=== PATIENT | female | born 1985 | race Hispanic/Latino ===

== ENCOUNTER 2017-05-25 13:47 | Emergency (ER) | payer BC, OTHER ==
--- NOTE | 2017-05-25 14:32 | RAD ---
3 VIEWS RIGHT HAND: Date: 05/25/17 COMPARISON: None. HISTORY: Slipped on a glove at work and fell with right hand pain. FINDINGS: Three views of the right hand show no evidence of acute fracture or dislocation. No degenerative jennifer nges are seen. No focal soft tissue swelling is present. IMPRESSION: No evidence of acute osseous abnormality. POS: [facility]
--- NOTE | 2017-05-25 15:09 | RAD ---
4 VIEWS RIGHT KNEE: Date: 05/25/17 HISTORY: Slipped on glove at work and fall. FINDINGS: AP, lateral, and both oblique views of the right knee are obtained. Four views of the right knee demonstrate no evidence of right knee fractures, subluxations, or bony lesions. IMPRESSION: Normal 4 views right knee. POS: [facility]
== END 2017-05-25 15:19 | disposition home or self-care (01) ==
LOC: SCSER 13:47
DX: S83.91XA Sprain of unspecified site of right knee, initial encounter (principal); S63.601A Unspecified sprain of right thumb, initial encounter; E10.9 Type 1 diabetes mellitus without complications; J45.909 Unspecified asthma, uncomplicated; G51.0 Bell's palsy; F41.9 Anxiety disorder, unspecified; F32.9 Major depressive disorder, single episode, unspecified; Z79.4 Long term (current) use of insulin; Z79.899 Other long term (current) drug therapy; W01.0XXA Fall on same level from slipping, tripping and stumbling without subsequent striking against object, initial encounter

== ENCOUNTER 2017-08-22 13:21 | Emergency (ER) | payer BC, OTHER ==
--- NOTE | 2017-08-22 14:18 | RAD ---
PA AND LATERAL CHEST RADIOGRAPH: Date: 08-22-17 History: Cough. Comparison: 05-26-13 FINDINGS: The cardiac silhouette and pulmonary vasculature are within normal limits. The lungs remain clear. Th ere has been no interval change from prior study. IMPRESSION: No acute cardiopulmonary process. POS: [facility]
== END 2017-08-22 14:30 | disposition home or self-care (01) ==
LOC: SCSER 13:21
DX: J10.1 Influenza due to other identified influenza virus with other respiratory manifestations (principal); E10.9 Type 1 diabetes mellitus without complications; J45.909 Unspecified asthma, uncomplicated; F41.9 Anxiety disorder, unspecified; F32.9 Major depressive disorder, single episode, unspecified; Z79.899 Other long term (current) drug therapy
CPT/HCPCS: 71046; 87804

== ENCOUNTER 2017-08-25 02:42 | Emergency (ER) | payer BC, OTHER ==
[2017-08-25] MEDS ORDERED: traMADol HCl 50 MG TAB ONE (03:09)
== END 2017-08-25 03:15 | disposition home or self-care (01) ==
LOC: SCSER 02:42
DX: H66.92 Otitis media, unspecified, left ear (principal); E10.9 Type 1 diabetes mellitus without complications; J45.909 Unspecified asthma, uncomplicated; E78.00 Pure hypercholesterolemia, unspecified; G51.0 Bell's palsy; F41.9 Anxiety disorder, unspecified; F32.9 Major depressive disorder, single episode, unspecified; Z79.4 Long term (current) use of insulin; Z79.899 Other long term (current) drug therapy
CPT/HCPCS: 99283

== ENCOUNTER 2020-06-15 07:33 | Emergency (ER) | payer OTHER, SELFPAY ==
[2020-06-15 08:11] LABS: Bacteria/HPF 3+ HPF (None Seen); Bilirubin Negative (Negative); Blood, Urine Trace (Negative); Clarity Turbid (Clear); Glucose, Urine (Dipstick) Greater than 1000 mg/dL (Negative); Ketone, Urine Negative (Negative); Leukocyte 500 Leu/uL (Negative); Nitrite 1+ (Negative); Protein, Urine (Dipstick) 30 mg/dL (Neg-Trace); RBC/HPF 0-3 HPF (0-3); Specific Gravity, Urine 1.006 (1.002-1.036); Squamous Epithelial 0-3 HPF (0-3); Urobilinogen Normal mg/dL (Less than 2); WBC/HPF Greater than 50 HPF (0-3)
[2020-06-15 08:57] LABS: #Eosinphils 0.1 thou/uL (0.0-0.7); #Lymphocytes 1.2 thou/uL (1.20-3.40); #Monocytes 0.8 thou/uL (0.11-0.59); #Neutrophils 5.7 thou/uL (1.40-6.50); %Basophils 0.3 % (0.0-1.0); %Eosinophils 1.8 % (0.0-10.0); %Lymphocytes 15.2 % (21.0-51.0); %Monocytes 10.4 % (0.0-10.0); %Neutrophils 72.4 % (42.0-75.0); Hemoglobin 14.8 g/dL (12.0-16.0); Mean Corpuscular HGB CONC 35.1 g/dL (32.0-36.0); Mean Corpuscular Hemoglobin 30.8 pg (27.0-31.0); Mean Corpuscular Volume 87.9 fL (78.0-98.0); Mean Platelet Volume 8.5 fL (7.4-10.4); Platelet Count 232 thou/uL (130-400); RBC Distribution Width 11.6 % (11.5-14.5); Red Blood Cell (RBC) Count 4.81 mill/uL (4.20-5.40); White Blood Cell (WBC) Count 7.8 thou/uL (4.8-10.8)
[2020-06-15] MEDS ORDERED: cefTRIAXone\\ROCEPHIN 1 GM VIAL ONE (09:05)
[2020-06-15] MEDS ORDERED: Ketorolac Tromethamine 30 MG/ML VIAL ONE (09:05)
[2020-06-15 09:14] LABS: BHCG - Serum Negative (NEGATIVE); Pregs Control Background? CLEAR/WHITE (CLR/WHITE); Pregs Control Bar Appear? YES (CONTROL BAR)
[2020-06-15 09:26] LABS: ALT (SGPT) 30 U/L (8-55); AST (SGOT) 18 U/L (5-34); Albumin 4.5 g/dL (3.5-5.0); Alkaline Phosphatase 190 U/L (40-110); Anion Gap 16 mmol/L (10-20); BUN (Urea Nitrogen) 8 mg/dL (7.0-18.7); Bilirubin, Total 0.8 mg/dL (0.2-1.2); Calc. Creatinine Clearance 0 mL/min (70-130); Calcium 9.4 mg/dL (7.8-10.44); Carbon Dioxide 23 mmol/L (22-29); Chloride 101 mmol/L (98-107); Estimated GFR-MDRD Greater than 90; Globulin 3.8 g/dL (2.4-3.5); Glucose 132 mg/dL (70-105); Potassium 3.1 mmol/L (3.5-5.1); Protein, Total 8.3 g/dL (6.0-8.3); Sodium 137 mmol/L (136-145)
[2020-06-15] MEDS ORDERED: Morphine 4 MG/ML VIAL ONE (09:26)
[2020-06-15] MEDS ORDERED: diphenhydrAMINE 50 MG/ML VIAL ONE (09:48)
[2020-06-15] MEDS ORDERED: Azithromycin 250 MG TAB ONE (09:55)
--- NOTE | 2020-06-15 10:48 | CT ---
CT ABDOMEN AND PELVIS WITH IV CONTRAST 06/15/2020 CLINICAL INFORMATION: Right flank pain with dysuria and hematuria. Fever. COMPARISON: 03/03/2020 Technique: Multiple contiguous axial CT images are obtained through the abdomen and pelvis with IV contrast. Cor onal reformatted images are provided. FINDINGS: Lower Chest: Lung bases are clear. Vessels: Abdominal aorta is normal in caliber. Incidental note is made of a circumaortic left renal v ein. Abdomen: Portal vein:Patent Gallbladder: Within normal limits for CT imaging. Liver: within normal limits. Spleen: within normal limits. Pancreas: Multiple calcifications are seen throughout the pancreas with mild dilatation of the pancre atic duct. The largest calcification measuring 9 mm does appear to be in the region of the pancreatic duct at the level of the pancreatic head. Pancreatic head and uncinate process of the panc reas are atrophied. The appearance of the pancreas is unchanged compared to prior exam, and this was also present on study in 2018. Adrenals: within normal limits. Kidneys: Again noted is a renal cortical scarring on the right. There are lower density areas seen in the superior and inferior pole right kidney which may be attributable to the areas of scarring. However, there is also mild enhancement and thickening of the barajas of the renal pelvis and visualize d right ureter without hydronephrosis. These findings could be related to ascending infectious process with lower attenuation areas in the right kidney possibly attributable to pyelonephritis. The left kidney demonstrates a normal CT appearance. There is no hydronephrosis. Bowel: Moderate to large amount of retained fecal material in the rectum and sigmoid colon. Loops of small bowel are normal in caliber. Appendix: The appendix is visualized and normal in caliber. Peritoneum: No ascites or free air; no fluid collection. Mesentery and Retroperitoneum: No enlarged mesenteric or retroperitoneal lymph nodes. Abdominal Wall: There is a mildly prominent nonspecific left inguinal lymph node measuring 1.1 cm in short axis dimension. Pelvis: Reproductive Organs: Again noted is a 2.4 cm low-attenuation cystic lesion in the right adnexa with s lightly irregular margins on today's examination. This is likely related to a right ovarian cyst. This cyst does measure slightly larger in size with margins of the cyst are now slightly lobulated wh ich could be related to an involuting cyst on current study. Bladder: Incompletely distended. Bones: No suspicious lytic or sclerotic osseous lesions. IMPRESSION: 1. Persistent cortical scarring involving the right kidney greatest involving the superior and inferi or poles of the right kidney. There are areas of diminished attenuation in the superior and inferior poles the right kidney which could be related to areas of scarring. However, there is also m ild thickening and enhancement of the barajas of the right renal pelvis and the visualized right ureter which could be related to ascending infection. Areas of subtle diminished attenuation in the r ight kidney are again felt to most likely related to areas of scarring. While infection severe pyelonephritis is possibly there is no perinephric inflammatory stranding and there is no perinephric fluid collection identified. Correlation with urinalysis is recommended. 2. Innumerable calcifications seen throughout the pancreas likely sequela of prior pancreatitis. Ther e is a calcification measuring 9 mm seen in the region of the head of the pancreas, and the pancreatic duct is dilated distal to this calcification. Findings are suggestive of a pancreatic duct al calcification resulting in obstruction of the pancreatic duct. This is a stable finding compared to prior studies dating back to 2018. 3. Right ovarian cyst.
[2020-06-15] MEDS ORDERED: Iopamidol-370 76% 500 ML 1 ML ONE (13:42)
[2020-06-16 20:10] LABS: Chlamydia by PCR Not Detected (NotDetected); GC by PCR Not Detected (NotDetected)
== END 2020-06-15 11:23 | disposition home or self-care (01) ==
LOC: ERS 07:33
DX: N12 Tubulo-interstitial nephritis, not specified as acute or chronic (principal); N73.9 Female pelvic inflammatory disease, unspecified; E10.9 Type 1 diabetes mellitus without complications; E78.00 Pure hypercholesterolemia, unspecified; F41.9 Anxiety disorder, unspecified; F32.9 Major depressive disorder, single episode, unspecified; Z79.4 Long term (current) use of insulin
CPT/HCPCS: 36415; 74177; 80053; 81003; 81015; 84703; 85025; 87077; 87086; 87186; 87480; 87491; 87510; 87591; 87660; 96365; 96366; 96375; J0696; J1200; J1885; J2270; Q9967

== ENCOUNTER 2020-11-19 00:29 | Emergency (ER) | payer OTHER ==
[2020-11-19 02:53] LABS: Pregnancy Test - Urine (BHCG) Negative (Negative); Pregu Control Background? CLEAR/WHITE (CLR/WHITE); Pregu Control Bar Appear? YES (CONTROL BAR); Specific Gravity 1.032 (1.002-1.036)
[2020-11-19 02:56] LABS: #Eosinphils 0.1 thou/uL (0.0-0.7); #Lymphocytes 2.1 thou/uL (1.20-3.40); #Monocytes 0.8 thou/uL (0.11-0.59); #Neutrophils 4.8 thou/uL (1.40-6.50); %Basophils 0.6 % (0.0-1.0); %Eosinophils 1.5 % (0.0-10.0); %Lymphocytes 26.9 % (21.0-51.0); %Monocytes 9.7 % (0.0-10.0); %Neutrophils 61.3 % (42.0-75.0); Hemoglobin 11.8 g/dL (12.0-16.0); Mean Corpuscular HGB CONC 34.7 g/dL (32.0-36.0); Mean Corpuscular Hemoglobin 30.9 pg (27.0-31.0); Mean Platelet Volume 8.2 fL (7.4-10.4); Platelet Count 264 thou/uL (130-400); RBC Distribution Width 12.6 % (11.5-14.5); Red Blood Cell (RBC) Count 3.81 mill/uL (4.20-5.40); White Blood Cell (WBC) Count 7.9 thou/uL (4.8-10.8)
[2020-11-19 03:00] LABS: Bacteria/HPF None Seen HPF (None Seen); Bilirubin Negative (Negative); Blood, Urine Trace (Negative); Clarity Clear (Clear); Glucose, Urine (Dipstick) Greater than 1000 mg/dL (Negative); Ketone, Urine Negative (Negative); Leukocyte Negative Leu/uL (Negative); Nitrite Negative (Negative); Protein, Urine (Dipstick) Negative (Neg-Trace); Specific Gravity, Urine 1.032 (1.002-1.036); Squamous Epithelial 0-3 HPF (0-3); Urobilinogen Normal mg/dL (Less than 2)
[2020-11-19 03:23] LABS: ALT (SGPT) 42 U/L (8-55); AST (SGOT) 28 U/L (5-34); Albumin 3.9 g/dL (3.5-5.0); Alkaline Phosphatase 212 U/L (40-110); Anion Gap 13 mmol/L (10-20); BUN (Urea Nitrogen) 8 mg/dL (7.0-18.7); Bilirubin, Total 0.4 mg/dL (0.2-1.2); Calc. Creatinine Clearance 0 mL/min (70-130); Calcium 8.6 mg/dL (7.8-10.44); Carbon Dioxide 25 mmol/L (22-29); Chloride 101 mmol/L (98-107); Globulin 3.1 g/dL (2.4-3.5); Lipase 8 U/L (8-78); Potassium 3.4 mmol/L (3.5-5.1); Sodium 136 mmol/L (136-145)
[2020-11-19 03:27] LABS: Glucose 596 mg/dL (70-105)
[2020-11-19] MEDS ORDERED: Insulin Regular 300 UNITS/3 ML VIAL ONE (03:48)
== END 2020-11-19 03:55 | disposition home or self-care (01) ==
LOC: ERS 00:29
DX: A08.4 Viral intestinal infection, unspecified (principal); E10.9 Type 1 diabetes mellitus without complications; J45.909 Unspecified asthma, uncomplicated; E78.00 Pure hypercholesterolemia, unspecified
CPT/HCPCS: 36415; 80053; 81003; 81015; 81025; 83690; 85025; 94760; 96374; J1815

== ENCOUNTER 2021-06-15 12:20 | Outpatient (CLI) | payer OTHER | END 2021-06-15 12:21 | disposition home or self-care (01) | LOC: EEG 12:20 | PROVIDERS: ATTEND Nurse Practitioner Acute Care | DX: G40.209 Localization-related (focal) (partial) symptomatic epilepsy and epileptic syndromes with complex partial seizures, not intractable, without status epilepticus (principal) | CPT/HCPCS: 95816 ==

== ENCOUNTER 2023-07-23 12:56 | Inpatient (IN) | payer OTHER ==
[2023-07-23] MEDS ORDERED: Dextrose 10% in Water 250 ML ONE ×2 (13:00→13:44)
[2023-07-23 13:17] LABS: #Basophils 0.1 thou/uL (0.0-0.2); #Eosinphils 0.4 thou/uL (0.0-0.7); #Neutrophils 5.3 thou/uL (1.40-6.50); %Basophils 0.8 % (0.0-1.0); %Eosinophils 3.1 % (0.0-10.0); %Lymphocytes 40.8 % (21.0-51.0); %Monocytes 8.7 % (0.0-10.0); %Neutrophils 46.3 % (42.0-75.0); Hematocrit 33.2 % (36.0-47.0); Hemoglobin 10.3 g/dL (12.0-16.0); Mean Corpuscular Hemoglobin 25.6 pg (27.0-31.0); Mean Corpuscular Volume 82.4 fl (78.0-98.0); Mean Platelet Volume 10.3 fL (7.4-10.4); Platelet Count 392 10x3/uL (130-400); RBC Distribution Width 15.6 % (11.5-14.5); Red Blood Cell (RBC) Count 4.03 mill/uL (4.20-5.40); White Blood Cell (WBC) Count 11.4 10x3/uL (4.8-10.8)
[2023-07-23 13:40] LABS: ALT (SGPT) 16 U/L (8-55); AST (SGOT) 14 U/L (5-34); Albumin 3.9 g/dL (3.5-5.0); Alcohol Less than 10.0 mg/dL (Less than 10); Alkaline Phosphatase 187 U/L (40-110); Anion Gap 11 mmol/L (10-20); BUN (Urea Nitrogen) 10 mg/dL (7.0-18.7); Bilirubin, Total 0.3 mg/dL (0.2-1.2); Calc. Creatinine Clearance 0 mL/min (70-130); Carbon Dioxide 27 mmol/L (22-29); Chloride 106 mmol/L (98-107); Estimated GFR 115; Globulin 3.4 g/dL (2.4-3.5); Glucose 60 mg/dL (70-105); Lipase 9 U/L (8-78); Potassium 3.2 mmol/L (3.5-5.1); Protein, Total 7.3 g/dL (6.0-8.3); Sodium 141 mmol/L (136-145)
[2023-07-23 13:42] LABS: Troponin I Less than 0.010 ng/mL (< 0.028)
[2023-07-23 13:43] LABS: Bacteria/HPF 3+ HPF (None Seen); Bilirubin Negative (Negative); Blood, Urine Negative (Negative); CAUTI Indications for Culture Alt mental st,lethar; Clarity Turbid (Clear); Glucose, Urine (Dipstick) 500 mg/dL (Negative); Ketone, Urine Negative (Negative); Leukocyte 500 Leu/uL (Negative); Nitrite 2+ (Negative); Protein, Urine (Dipstick) 10 mg/dL (Neg-Trace); Squamous Epithelial 0-3 HPF (0-3); Urobilinogen Normal mg/dL (Less than 2); WBC/HPF Greater than 50 HPF (0-3); pH, Urine 6.5 (5.0-9.0)
[2023-07-23 13:44] LABS: Pregnancy Test - Urine (BHCG) Negative (Negative); Pregu Control Background? CLEAR/WHITE (CLR/WHITE); Pregu Control Bar Appear? YES (CONTROL BAR)
[2023-07-23 13:45] LABS: Urine Culture Reflex Yes Yes
[2023-07-23 13:46] LABS: Amphetamine Not Detected (NotDetected); Barbiturates Screen Not Detected (NotDetected); Benzodiazepine Screen Detected (NotDetected); Cocaine Metabolite Screen Not Detected (NotDetected); Methadone Not Detected (NotDetected); Methamphetamine Not Detected (NotDetected); Opiate Screen Not Detected (NotDetected); Oxycodone Screen Not Detected (NotDetected); Phencyclidine (PCP) Not Detected (NotDetected); THC/Cannabinoid Screen Detected (NotDetected); Tricyclic Screen Not Detected (NotDetected)
[2023-07-23] MEDS ORDERED: Ciprofloxacin Lactate/D5W 400 mg/200 ml Premix ONE (13:56)
[2023-07-23] MEDS ORDERED: Dextrose 5% in Water 1,000 ML IV PRN (17:19)
[2023-07-23] MEDS ORDERED: Acetaminophen 325 MG TAB PO PRN (17:19)
[2023-07-23] MEDS ORDERED: Ondansetron PF 4 MG/2 ML Vial IVP PRN (17:19)
[2023-07-23] MEDS ORDERED: Glucagon 1 MG/ML KIT IM PRN (17:19)
[2023-07-23] MEDS ORDERED: Dextrose 50% Abboject 50 ML SYRINGE SLOW IVP PRN (17:19)
[2023-07-23] MEDS ORDERED: Potassium Chloride 20 MEQ TAB PO SCH (17:45)
[2023-07-23 17:48] LABS: Hemoglobin A1c 11.2 % (4.0-6.0)
[2023-07-23] MEDS: Famotidine 20 MG TAB PO SCH (21:50)
[2023-07-23] MEDS: Ciprofloxacin 500 MG TAB PO SCH (21:50)
[2023-07-24 01:44] VITALS: BMI 20.5
[2023-07-24] MEDS: Ciprofloxacin 500 MG TAB PO SCH ×2 (06:10→20:40)
[2023-07-24] MEDS: Insulin Regular 300 UNITS/3 ML VIAL SC PRN ×3 (06:11→17:55)
[2023-07-24 07:35] LABS: #Basophils 0.1 thou/uL (0.0-0.2); #Eosinphils 0.2 thou/uL (0.0-0.7); #Monocytes 0.5 thou/uL (0.11-0.59); #Neutrophils 4.3 thou/uL (1.40-6.50); %Basophils 0.9 % (0.0-1.0); %Eosinophils 3.6 % (0.0-10.0); %Lymphocytes 24.5 % (21.0-51.0); %Monocytes 7.3 % (0.0-10.0); %Neutrophils 63.6 % (42.0-75.0); Hematocrit 31.4 % (36.0-47.0); Hemoglobin 9.6 g/dL (12.0-16.0); Mean Corpuscular HGB CONC 30.6 g/dL (32.0-36.0); Mean Corpuscular Hemoglobin 25.3 pg (27.0-31.0); Mean Corpuscular Volume 82.8 fl (78.0-98.0); Mean Platelet Volume 10.1 fL (7.4-10.4); Platelet Count 315 10x3/uL (130-400); RBC Distribution Width 15.5 % (11.5-14.5); Red Blood Cell (RBC) Count 3.79 mill/uL (4.20-5.40); White Blood Cell (WBC) Count 6.7 10x3/uL (4.8-10.8)
[2023-07-24 07:56] LABS: Anion Gap 11 mmol/L (10-20); BUN (Urea Nitrogen) 8 mg/dL (7.0-18.7); Calc. Creatinine Clearance 94 mL/min (70-130); Calcium 8.7 mg/dL (7.8-10.44); Carbon Dioxide 26 mmol/L (22-29); Chloride 103 mmol/L (98-107); Estimated GFR 113; Glucose 259 mg/dL (70-105); Potassium 3.9 mmol/L (3.5-5.1); Sodium 136 mmol/L (136-145)
[2023-07-24] MEDS: FLUoxetine HCl 20 MG CAP PO SCH (08:45)
[2023-07-24] MEDS: Pregabalin 50 MG CAP PO SCH ×2 (08:45→20:40)
[2023-07-24] MEDS: Insulin Glargine 30 UNITS/0.3 ML VIAL SC SCH (08:45)
[2023-07-24] MEDS: levETIRAcetam 500 MG TAB PO SCH ×2 (08:45→20:40)
[2023-07-24] MEDS: Famotidine 20 MG TAB PO SCH ×2 (08:45→20:40)
[2023-07-24] MEDS: traZODone HCl 50 MG TAB PO SCH (20:40)
[2023-07-25] MEDS: Ciprofloxacin 500 MG TAB PO SCH ×2 (06:19→20:50)
[2023-07-25] MEDS: Insulin Regular 300 UNITS/3 ML VIAL SC PRN ×3 (06:19→20:52)
[2023-07-25] MEDS: Famotidine 20 MG TAB PO SCH ×2 (08:23→20:48)
[2023-07-25] MEDS: FLUoxetine HCl 20 MG CAP PO SCH (08:23)
[2023-07-25] MEDS: levETIRAcetam 500 MG TAB PO SCH ×2 (08:23→20:50)
[2023-07-25] MEDS: Pregabalin 50 MG CAP PO SCH ×2 (08:23→20:48)
[2023-07-25] MEDS: Insulin Glargine 30 UNITS/0.3 ML VIAL SC SCH (08:24)
[2023-07-25] MEDS ORDERED: Bisacodyl 10 MG SUPP PR PRN (12:42)
[2023-07-25] MEDS ORDERED: Mineral Oil ENEMA PR SCH (13:00)
[2023-07-25] MEDS ORDERED: GoLYTELY 4,000 ml Bottle PO SCH (15:00)
[2023-07-25] MEDS: traZODone HCl 50 MG TAB PO SCH (20:51)
[2023-07-25] MEDS ORDERED: Senokot S 8.6-50 MG TAB PO SCH (21:00)
[2023-07-25 21:09] VITALS: BP 153/104; TEMP 97.7
[2023-07-26] MEDS ORDERED: Polyethylene Glycol 3350 17 GM Packet PO SCH (09:00)
[2023-07-27] MEDS ORDERED: FLU VACC QS2023-24(6MOS UP)/PF 60 MCG/0.5 ML SYRINGE IM ONE (09:00)
== END 2023-07-25 22:20 | disposition left against medical advice (07) | DRG 638 ==
LOC: ERS 12:56 → T4-A 17:26 → OBSVTOIN 07-24 15:04
PROVIDERS: ADMIT Family Medicine; ATTEND Internal Medicine
PROC: 0T9B70Z Drainage of Bladder with Drainage Device, Via Natural or Artificial Opening (ICD-10-PCS; principal; 2023-07-24)
DX: E10.649 Type 1 diabetes mellitus with hypoglycemia without coma (principal); E44.0 Moderate protein-calorie malnutrition; N39.0 Urinary tract infection, site not specified; E78.5 Hyperlipidemia, unspecified; G40.909 Epilepsy, unspecified, not intractable, without status epilepticus; Z88.0 Allergy status to penicillin; Z88.5 Allergy status to narcotic agent; Z79.899 Other long term (current) drug therapy; Z79.4 Long term (current) use of insulin; F41.9 Anxiety disorder, unspecified; F32.A Depression, unspecified; Z90.89 Acquired absence of other organs; Z98.49 Cataract extraction status, unspecified eye; Z82.49 Family history of ischemic heart disease and other diseases of the circulatory system; Z83.3 Family history of diabetes mellitus; E87.6 Hypokalemia; E78.00 Pure hypercholesterolemia, unspecified
CPT/HCPCS: 36415; 36416; 51701; 70450; 71045; 74176; 80048; 80053; 80306; 80307; 81001; 81025; 83036; 83605; 83690; 83735; 84443; 84484; 85025; 87077; 87086; 87186; 93005; 96365; 96366; 96367; G0378; J0744; J1815